=== PATIENT | male | born 1940 | race Caucasian/White ===

== ENCOUNTER 2018-03-22 10:38 | Emergency (ER) | payer OTHER, MEDICARE ==
[~2018-03-22] VITALS: Ht 182.9 cm; Wt 90.0 kg
[~2018-03-22 10:38] MED LIST: AGGRENOX 200/251 CAP OR; ASPIRIN325 MG OR; CILOSTAZOL100 MG OR; DIPHEDRYL12.5 MG/1 OR; FORMOTEROL XX; FOSAMAX70 MG OR; HYDROCHLOROTH12.5 MG OR; LOPRESSOR100 MG OR; MULTIVITAMIN OR; SIMVASTATIN40 MG OR; [UNRECOGNIZED DRUG - OTHER] OR; [UNRECOGNIZED DRUG - OTHER] OR
[2018-03-22] MEDS ORDERED: SYMBICORT 80-4.5MCG IN (11:30)
[2018-03-22] MEDS ORDERED: HCTZ/TRIAMT1 TA1 PO (11:32)
[2018-03-22] MEDS ORDERED: LISINOPRIL2.5 MG PO (11:33)
[2018-03-22 11:39] LABS: HEMATOCRIT 47.6 % (39.0-50.0); HEMOGLOBIN 16.3 g/dl (14.0-18.0); IMMATURE GRANULOCYTES 0.3 % (0.0-5.0); MEAN CELL VOLUME 92.2 fL CALC (80.0-100.0); MEAN CORPUSCULAR HGB 31.6 pG CALC (26.0-32.0); MEAN CORPUSCULAR HGB CONC 34.2 g/L CALC (32.0-36.0); NEUT# 5.05 thou/uL (1.82-7.42); RED BLOOD COUNT 5.16 mill/uL (4.70-6.10); RED CELL DISTRI WIDTH 14.4 % (11.5-15.5)
[2018-03-22 11:52] LABS: ALBUMIN 3.9 g/dL (3.2-5.0); ALKALINE PHOSPHATASE 85 u/l (38-126); ANION GAP 14 (6-22 (CALC)); BILIRUBIN, TOTAL 0.4 mg/dL (0.0-1.4); BUN 13 mg/dL (8-23); BUN/CREATININE RATIO 13 (12-20 (CALC)); CARBON DIOXIDE 23 mmol/l (22-30); CHLORIDE 109 mmol/l (95-108); ETHYL ALCOHOL 0 mg/dl (0-30); GFR > 60 ML/MIN (>=60 (CALC)); GFR FOR AFR.AMER. > 60 ML/MIN (>=60 (CALC)); POTASSIUM 3.8 mmol/l (3.5-5.1); SGPT/ALT 30 u/l (11-66); SODIUM 143 mmol/l (137-146)
[2018-03-22 11:53] LABS: SGOT/AST 33 u/l (19-48)
[2018-03-22 11:58] LABS: INTERNATIONAL NORMALIZED RATIO 1.1 RATIO (0.7-1.3); PROTHROMBIN TIME 11.9 SECONDS (9.0-12.5)
[2018-03-22] MEDS ORDERED: PROTONIX40 MG PO (12:16)
[2018-03-22 13:00] VITALS: BP 142/79
== END 2018-03-22 13:00 | disposition home or self-care (01) | DRG 948 ==
LOC: ED 10:38
PROVIDERS: Emergency Medicine
DX: R53.1 Weakness (principal); I10 Essential (primary) hypertension
CPT/HCPCS: S0164

== ENCOUNTER 2020-02-14 11:27 | Observation (INO) | payer OTHER, MEDICARE ==
[~2020-02-14] VITALS: Ht 182.9 cm; Wt 71.0 kg
[~2020-02-14 11:27] MED LIST changes: +HCTZ/TRIAMT1 TA1 PO; +LISINOPRIL2.5 MG PO; +PROTONIX40 MG PO; +SYMBICORT 80-4.5MCG IN
[2020-02-14] MEDS ORDERED: CILOSTAZOL100 MG PO (11:50)
[2020-02-14] MEDS ORDERED: OLANZAPINE2.5 MG PO (11:51)
[2020-02-14] MEDS ORDERED: DIVALPROEX SOD500 M3 PO (11:55)
[2020-02-14] MEDS ORDERED: ASPIRIN ADULT L81 M2 PO (11:56)
[2020-02-14] MEDS ORDERED: EC ASPIRIN325 MG PO (11:58)
[2020-02-14] MEDS ORDERED: TOPROL XL50 MG PO (11:59)
[2020-02-14] MEDS ORDERED: SIMVASTATIN10 MG PO (11:59)
[2020-02-14 12:24] LABS: HEMATOCRIT 43.9 % (39.0-50.0); IMMATURE GRANULOCYTES 0.3 % (0.0-5.0); MEAN CELL VOLUME 93.8 fL CALC (80.0-100.0); MEAN CORPUSCULAR HGB 28.6 pG CALC (26.0-32.0); MEAN CORPUSCULAR HGB CONC 30.5 g/dL CAL (32.0-36.0); NEUT# 3.56 thou/uL (1.82-7.42); RED BLOOD COUNT 4.68 mill/uL (4.70-6.10); RED CELL DISTRI WIDTH 14.4 % (11.5-15.5)
[2020-02-14 12:33] LABS: HEMOGLOBIN 13.4 g/dl (14.0-18.0)
[2020-02-14 12:42] LABS: INTERNATIONAL NORMALIZED RATIO 1.1 RATIO (0.7-1.3); PROTHROMBIN TIME 10.9 SECONDS (9.0-12.5)
[2020-02-14 12:43] LABS: URINE BILIRUBIN - DIPSTICK NEGATIVE (NEGATIVE); URINE BLOOD DIPSTICK TRACE-INTACT (NEGATIVE); URINE COLOR YELLOW; URINE GLUCOSE - DIPSTICK NEGATIVE (NEGATIVE); URINE KETONE NEGATIVE (NEGATIVE); URINE LEUK ESTERASE NEGATIVE (NEGATIVE); URINE NITRITE - DIPSTICK NEGATIVE (Negative); URINE PH 7.5 (4.5-8.0); URINE PROTEIN - DIPSTICK NEGATIVE (NEG-TRACE); URINE SPECIFIC GRAVITY 1.015
[2020-02-14 12:44] LABS: ALBUMIN 4.1 g/dL (3.2-5.0); ALKALINE PHOSPHATASE 76 u/l (38-126); ANION GAP 6 (6-22 (CALC)); BILIRUBIN, TOTAL 0.4 mg/dL (0.0-1.4); BUN 16 mg/dL (8-23); BUN/CREATININE RATIO 22 (12-20 (CALC)); CHLORIDE 102 mmol/l (95-108); CREATININE 0.7 mg/dL (0.7-1.3); GFR > 60 ML/MIN (>=60 (CALC)); GFR FOR AFR.AMER. > 60 ML/MIN (>=60 (CALC)); LIPASE 29 u/l (23-300); POTASSIUM 3.3 mmol/l (3.5-5.1); SGOT/AST 31 u/l (19-48); SODIUM 138 mmol/l (137-146); TOTAL PROTEIN 7.1 g/dL (6.3-8.2)
[2020-02-14 12:48] LABS: CARBON DIOXIDE 33 mmol/l (22-30)
[2020-02-14 12:56] LABS: MYOGLOBIN 59 ng/mL (0 - 121)
[2020-02-14 16:16] VITALS: BP 149/73
[2020-02-14 19:40] VITALS: BP 156/76
[2020-02-14 23:00] VITALS: BP 159/67
[2020-02-15] VITALS (8 sets, daily range): BP systolic 127–162; BP diastolic 58–79
[2020-02-15 08:06] LABS: ANION GAP 9 (6-22 (CALC)); BUN 10 mg/dL (8-23); BUN/CREATININE RATIO 17 (12-20 (CALC)); CARBON DIOXIDE 27 mmol/l (22-30); CHLORIDE 104 mmol/l (95-108); CREATININE 0.6 mg/dL (0.7-1.3); GFR > 60 ML/MIN (>=60 (CALC)); GFR FOR AFR.AMER. > 60 ML/MIN (>=60 (CALC)); MAGNESIUM 1.9 mg/dL (1.6-2.3); POTASSIUM 3.3 mmol/l (3.5-5.1); SODIUM 136 mmol/l (137-146)
[2020-02-16 00:58] VITALS: BP 171/83
[2020-02-16 04:00] VITALS: BP 172/78
[2020-02-16 05:30] VITALS: BP 172/78
[2020-02-16 08:00] VITALS: BP 167/93
[2020-02-16 10:30] VITALS: BP 152/68
[2020-02-16 14:30] VITALS: BP 153/50
== END 2020-02-16 15:11 | disposition home or self-care (01) | DRG 884 ==
LOC: ED 11:27 → ED-I 12:06 → ED 14:16 → ED-I 14:17 → MS2 14:17
PROVIDERS: ADMIT Internal Medicine; ATTEND Internal Medicine
DX: F03.91 Unspecified dementia, unspecified severity, with behavioral disturbance (principal); E87.6 Hypokalemia; I10 Essential (primary) hypertension; J44.9 Chronic obstructive pulmonary disease, unspecified; I73.9 Peripheral vascular disease, unspecified; I25.10 Atherosclerotic heart disease of native coronary artery without angina pectoris; K40.90 Unilateral inguinal hernia, without obstruction or gangrene, not specified as recurrent; Z86.73 Personal history of transient ischemic attack (TIA), and cerebral infarction without residual deficits; Z95.5 Presence of coronary angioplasty implant and graft; Z87.891 Personal history of nicotine dependence; Z20.828 Contact with and (suspected) exposure to other viral communicable diseases
CPT/HCPCS: G0378; J2060; S0166

== ENCOUNTER 2020-08-30 11:57 | Inpatient (IN) | payer MEDICARE ==
[2020-08-30] VITALS (14 sets, daily range): BP systolic 113–162; BP diastolic 57–82
[~2020-08-30] VITALS: Ht 182.9 cm; Wt 80.0 kg
[~2020-08-30 11:57] MED LIST changes: +ASPIRIN ADULT L81 M2 PO; +CILOSTAZOL100 MG PO; +DIVALPROEX SOD500 M3 PO; +EC ASPIRIN325 MG PO; +OLANZAPINE2.5 MG PO; +SIMVASTATIN10 MG PO; +TOPROL XL50 MG PO
--- NOTE | 2020-08-30 12:00 | NUR ---
PATIENT TO ROOM VIA EMS STRETCHER.
--- NOTE | 2020-08-30 12:20 | NUR ---
PATIENT SETTLED. CALL MAY IN REACH. ADVISED OF PLAN OF ARE
[2020-08-30] MEDS ORDERED: SEROQUEL100 MG PO (12:37)
[2020-08-30] MEDS ORDERED: TYLENOL500 MG PO (12:40)
[2020-08-30 12:50] LABS: ALBUMIN 3.3 g/dL (3.2-5.0); BILIRUBIN, TOTAL 0.5 mg/dL (0.0-1.4); HEMATOCRIT 30.1 % (39.0-50.0); HEMOGLOBIN 9.4 g/dl (14.0-18.0); IMMATURE GRANULOCYTES 2.4 % (0.0-5.0); MEAN CELL VOLUME 87.8 fL CALC (80.0-100.0); MEAN CORPUSCULAR HGB 27.4 pG CALC (26.0-32.0); MEAN CORPUSCULAR HGB CONC 31.2 g/dL CAL (32.0-36.0); NEUT# 11.7 thou/uL (1.82-7.42); RED BLOOD COUNT 3.43 mill/uL (4.70-6.10); RED CELL DISTRI WIDTH 14.3 % (11.5-15.5); TOTAL PROTEIN 6.9 g/dL (6.3-8.2)
[2020-08-30 12:52] LABS: CREATININE 5.7 mg/dL (0.7-1.3)
--- NOTE | 2020-08-30 13:00 | NUR ---
FRIEND AT BEDSIDE.
--- NOTE | 2020-08-30 13:15 | NUR ---
ATTEMPTED TO STRAIGHT CATH USING STERILE TECHNIQUE. NO URINE. DR RIVERA AWARE
--- NOTE | 2020-08-30 16:38 | NUR ---
BLADDER SCAN AT 126, DORA, GERENTOLOGICAL PHYSIOTHERAPIST NOTIFIED.
--- NOTE | 2020-08-30 18:00 | NUR ---
PATIENT COMPLAINING OF LEFT SIDED ABDOMINAL PAIN. Reji OCHOA NOTIFIED. oRDERS GIVEN
--- NOTE | 2020-08-30 18:45 | NUR ---
PT TO ICU BED 6 VIA STRETCHER ACCOMPANIED BY ER NURSE. PT SETTLED IN BED AND PLACED ON BENCH LOOM WEAVER.
--- NOTE | 2020-08-30 18:50 | NUR ---
TRANSFERERF TO ICU 6 VIA STERTCHER. STABLE UPON ARRIVAL. MONITORED DURING TRANSFER, IV INTACT
--- NOTE | 2020-08-30 19:00 | NUR ---
NOTIFIED Tracy YARBROUGH OF AFIB WITH RVR AND PT PAIN. NEW ORDERS RECEIVED.
--- NOTE | 2020-08-30 19:30 | NUR ---
PT RESTING IN BED AWAKE. PT IS ALERT AND ORIENTED TO PERSON ONLY. ADMISSION ASSESSMENT COMPLETED AT THIS TIME. HISTORY LIMITED DUE TO ORIENTATION. IV PATENT X1. CALL LIGHT IN REACH. WILL CONTINUE TO MONITOR.
--- NOTE | 2020-08-30 20:00 | NUR ---
D KAREENEE NOTIFIED OF RUNS OF VTACH AND THAT MAG LEVEL IS 1.9. PT AWAITING TRANSPORT TO CT.
--- NOTE | 2020-08-30 20:30 | NUR ---
PT TO RADIOLOGY VIA STRETCHER FOR CT SCAN.
--- NOTE | 2020-08-30 21:00 | NUR ---
PT RETURNED FROM CT TO ICU 6 PT SETTLED BACK IN BED.
--- NOTE | 2020-08-30 22:00 | NUR ---
PT RESTING IN BED WITH EYES CLOSED. CARDIZEM TITRATED PER TITRATION CHARTING. BED ALARM IN PLACE AT THIS TIME FOR PT SAFETY. CALL LIGHT IN REACH. WILL CONTINUE TO MONITOR.
[2020-08-31] VITALS (27 sets, daily range): BP systolic 91–208; BP diastolic 49–97
--- NOTE | 2020-08-31 00:05 | NUR ---
LAB AT BEDSIDE AT THIS TIME FOR BLOOD DRAW
--- NOTE | 2020-08-31 00:47 | NUR ---
HERNANDEZ PLACED USING STERILE TECHNIQUE. IMMEADIATE RETURN OF URINE. UA SENT TO LAB.
[2020-08-31 00:55] LABS: URINE BILIRUBIN - DIPSTICK NEGATIVE (NEGATIVE); URINE BLOOD DIPSTICK LARGE (NEGATIVE); URINE COLOR YELLOW; URINE GLUCOSE - DIPSTICK NEGATIVE (NEGATIVE); URINE KETONE NEGATIVE (NEGATIVE); URINE LEUK ESTERASE TRACE (NEGATIVE); URINE NITRITE - DIPSTICK NEGATIVE (Negative); URINE PROTEIN - DIPSTICK 100 mg/dL (NEG-TRACE); URINE UROBILINOGEN - DIPSTICK 0.2 E.U./dL (0.2)
[2020-08-31 00:59] LABS: POTASSIUM 3.4 mmol/l (3.5-5.1)
[2020-08-31 01:02] LABS: URINE BACTERIA FEW hpf; URINE RBC 50-100 RBC/hpf (0-5); URINE SQUAMOUS EPITHELIAL CELL FEW EPI/hpf (0-FEW)
[2020-08-31 01:05] LABS: CREATININE 6.1 mg/dL (0.7-1.3)
--- NOTE | 2020-08-31 01:51 | NUR ---
PT MOANING ALOUD. PT REMAINS AFIB ON MONITOR 86-150. CALL LGT IN REACH. WILL CO NTINUE TO MONITOR
--- NOTE | 2020-08-31 04:00 | NUR ---
PT RESTING IN BED WITH EYES CLOSED. RESP ARE EVEN AND UNLABORED. NO DISTRESS NOTED. CALL LIGHT IN REACH. WILL CONTINUE TO MONITOR.
--- NOTE | 2020-08-31 05:40 | NUR ---
LAB AT BEDSIDE FOR AM LABS
[2020-08-31 05:59] LABS: HEMATOCRIT 25.4 % (39.0-50.0); HEMOGLOBIN 7.8 g/dl (14.0-18.0); MEAN CELL VOLUME 87.3 fL CALC (80.0-100.0); MEAN CORPUSCULAR HGB 26.8 pG CALC (26.0-32.0); MEAN CORPUSCULAR HGB CONC 30.7 g/dL CAL (32.0-36.0); NEUT# 10.44 thou/uL (1.82-7.42); RED BLOOD COUNT 2.91 mill/uL (4.70-6.10); RED CELL DISTRI WIDTH 14.2 % (11.5-15.5)
[2020-08-31 06:19] LABS: BILIRUBIN, TOTAL 0.4 mg/dL (0.0-1.4); CHOLESTEROL HDL RATIO 2.5 (<4.4 (CALC)); MAGNESIUM 1.8 mg/dL (1.6-2.3); POTASSIUM 3.3 mmol/l (3.5-5.1)
[2020-08-31 06:23] LABS: ALBUMIN 2.5 g/dL (3.2-5.0); CREATININE 6.2 mg/dL (0.7-1.3); TOTAL PROTEIN 5.3 g/dL (6.3-8.2)
--- NOTE | 2020-08-31 06:35 | NUR ---
SPOKE WITH DR CHAVEZ AND Tracy YARBROUGH FOR LAB RESULTS AND CT RESULTS.
--- NOTE | 2020-08-31 07:20 | NUR ---
PATIENT IS DROWSY, AWAKENS WITH PAINFUL STIMULI, IS GUARDED WHEN ATTEMPTING NURSING CARE. NURSE ASSESSMNET PERFORMED, SEE CHARTING DOCUMENTATION. HERNANDEZ CATHETER DRAINS BLOODY URINE. LARM IS EDEMETOUS, NO WEEPING, IS BRUISED AND RED, HAS STRONG RADIAL AND BRACHIAL PULSE. RAC 20 G INTACT, NS AT 30 ML/HR, CARDIZEM WEANED TO 10 MG/HR, STILL AFIB, HR RANGES 90'S TO LOW 100'S. SCROTUM IS ENLARGED, WARM TO TOUCH. CALL LIGHT WITHIN REACH.
--- NOTE | 2020-08-31 07:41 | NUR ---
joslyn power of patient called here for updates, reports patient has had enlarged scrotum for 8-10 yrs. 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 would like to talk to dr randolph as well.
--- NOTE | 2020-08-31 09:18 | NUR ---
SPOKE WITH NONA RICKETTS TO NOTIFY OF HOSPICE CONSULT.
--- NOTE | 2020-08-31 10:20 | NUR ---
RONNIE FROM [facility] CALLED HERE, SBAR GIVEN, REPORTS SHE WILL SPEAK TO SALOMON RODARTE, REPORTS JASSI FROM [facility] WILL BE COMING IN TODAY.
--- NOTE | 2020-08-31 12:28 | NUR ---
[facility] NURSE HERE TO SEE PATIENT, WILL NOTIFY CAY[place] (POA) OF POC, NURSE REPORTS PT WILL BE GOING TO [facility], PATIENT ABLE TO RESPOND, "YES, ALITTLE," WHEN ASKED IF HE IS IN PAIN.
--- NOTE | 2020-08-31 13:02 | NUR ---
PATIENT REPOSITIONED. DOES HAVE BLEEDING FROM PENIS AREA/TIP.
--- NOTE | 2020-08-31 13:35 | NUR ---
DNR ORDER PLACED, HAVE PHYSICAL COPY OF DNR PAPERWORK. ORDER PLACED PER DR KATHY BRANNON.
--- NOTE | 2020-08-31 15:57 | NUR ---
[facility] HERE TO JUNIOR ADMINISTRATIVE ASSISTANT PATIENT.
--- NOTE | 2020-08-31 16:00 | NUR ---
PATIENT SAFELY TRANSFERRED VIA STRETCHER ON 2 L/MIN NC. FOLWY CATHETER INTACT AND RAC 20 G INTACT, SALINE LOCKED.
--- NOTE | 2020-08-31 16:12 | NUR ---
CALLED AND SPOKE TO SHYANN AT [facility] TO PROVIDE REPORT.
--- NOTE | 2020-08-31 16:14 | NUR ---
CALLED AND SPOKE TO CAY[place], PATIENT'S POA TO NOTIFY PATIENT HAS LEFT TO [facility].
== END 2020-08-31 16:02 | disposition hospice, inpatient (51) | DRG 394 ==
LOC: ED 11:57 → ED-I 12:17 → ED 12:17 → ED-I 13:22 → ED 14:02 → ED-I 14:03 → MS2 18:12 → ICU 18:22
PROVIDERS: Family Medicine; Nurse Practitioner; ADMIT Internal Medicine; ATTEND Internal Medicine
PROC: 0T9B70Z Drainage of Bladder with Drainage Device, Via Natural or Artificial Opening (ICD-10-PCS; principal; 2020-08-31)
DX: K40.00 Bilateral inguinal hernia, with obstruction, without gangrene, not specified as recurrent (principal); N13.39 Other hydronephrosis; N17.9 Acute kidney failure, unspecified; E87.6 Hypokalemia; I10 Essential (primary) hypertension; F03.90 Unspecified dementia, unspecified severity, without behavioral disturbance, psychotic disturbance, mood disturbance, and anxiety; I48.91 Unspecified atrial fibrillation; J44.9 Chronic obstructive pulmonary disease, unspecified; I73.9 Peripheral vascular disease, unspecified; F32.9 Major depressive disorder, single episode, unspecified; R31.9 Hematuria, unspecified; K21.9 Gastro-esophageal reflux disease without esophagitis; R62.7 Adult failure to thrive; Z66 Do not resuscitate; Z51.5 Encounter for palliative care; Z68.23 Body mass index [BMI] 23.0-23.9, adult; Z95.5 Presence of coronary angioplasty implant and graft; Z85.46 Personal history of malignant neoplasm of prostate; Z87.891 Personal history of nicotine dependence; Z86.73 Personal history of transient ischemic attack (TIA), and cerebral infarction without residual deficits; Z20.822 Contact with and (suspected) exposure to COVID-19
CPT/HCPCS: J2060